=== PATIENT | male | born 1965 | race Caucasian/White ===

== ENCOUNTER → 2018-09-07 16:00 | Oncology outpatient (ONC) | payer OTHER, SELFPAY ==
[2018-08-31 15:31] VITALS: BP 139/75; PULSE 70; RESP 16; TEMP 37.2; O2SAT 96
--- NOTE | 2018-08-31 15:54 | ONC.CONS ---
History of Present Illness - Data of Consult Consult date: 08/31/18 Primary Care Provider: Joseph Houser MD - Consult Narrative Narrative: Colin Fuentes is a 53 year old male who is referred for further evaluation of a recently discovered thrombocytopenia. The patient reports that he has been undergoing evaluation for bariatric surgery. As part of that, he had routine blood work done on June 30. He was found to have a platelet count of a [id number]. He had a mild anemia with a hemoglobin of 12.5 hematocrit 35.5 and an MCV of 91. His white count was 6000. The he does not have any other older CBCs available in our system for review. He tells me that he has had lifelong mild anemia. He has not been aware of any prior history of thrombocytopenia. He denies any unusual bleeding or bruising. There has been no epistaxis or gingival bleeding. He has not noted any blood in the stool or in the urine. He did have a recent colonoscopy. He is unaware of any prior history of cytopenias. He has never required a transfusion. He has never been a blood donor. There is no family history of blood dyscrasias. He has not had any recent infections. He has not noted any adenopathy. His weight has been stable. His appetite has been good. He is otherwise without complaint. Past medical history is notable for hypertension and gout. He has had a prior pacemaker placed. He has had some arthritis in his knee. He did have a recent colonoscopy with only a couple of polyps found. His medications include lisinopril and hydrochlorothiazide. He takes allopurinol. He uses indomethacin as needed. He does take some meloxicam aspirin 81 mg and vitamin-D. He reports an allergy to penicillin. Family history: He has a half brother who is being treated for cancer other does not know what type. There is no family history of blood dyscrasias or cytopenias. There is no other family history of malignancy. Social history: He is . He and his on an insurance agency. He quit smoking about 6 months ago and switched to weight-bearing. He has just recently stopped nicotine. He does have occasional alcohol use. CC: Ray Motley MD Home Medications and Allergies Home Medications Medication Instructions Recorded Confirmed Type albuterol sulfate 2 puff INHALATION Q6H PRN 08/31/18 08/31/18 History allopurinol 1 tab PO DAILY 08/31/18 08/31/18 History aspirin 81 mg PO DAILY 08/31/18 08/31/18 History cholecalciferol (vitamin D3) 5,000 unit PO DAILY 08/31/18 08/31/18 History [Vitamin D3] hydrochlorothiazide 1 tab PO DAILY 08/31/18 08/31/18 History lisinopril 1 tab PO DAILY 08/31/18 08/31/18 History meloxicam 7.5 mg PO DAILY 08/31/18 08/31/18 History omeprazole 10 mg PO PRN PRN 08/31/18 08/31/18 History Allergies Allergy/AdvReac Type Severity Reaction Status Date / Time Penicillins Allergy Mild Hives Verified 08/31/18 15:33 Medical History - Social History Smoking Status: Former smoker Alcohol Intake Frequency: 0-2 drinks per day Current Occupational Status: employed Review of Systems Constitutional: fair state of general health Ears, nose, mouth, throat: nasal congestion Gastrointestinal: no change in appetite, no abdominal pain Exam - Constitutional positive no acute distress, positive morbidly obese - Routine HEENT Exam Head: Present: normocephalic, atraumatic Eye: Present: EOMI, PERRL. Absent: conjunctival icterus, scleral injection ENT: Present: mucous membranes moist, oropharynx clear, dentition normal - Routine Neck Exam Present: supple. Absent: lymphadenopathy, thyromegaly - Routine Chest/Breast/Axilla Exam Chest wall exam standard: Absent: tenderness - Routine Respiratory Exam Present: Clear to auscultation bilaterally. Absent: rales, wheezes - Routine Cardiovascular Exam Present: RRR, S1, S2. Absent: murmur - Routine Abdominal Exam Present: soft. Absent: tenderness, organomegaly, mass - Routine Extremities Exam Present: edema. Absent: cyanosis, clubbing - Routine Back/Spine Exam Back/Spine: Absent: paraspinal tenderness, vertebral tenderness - Routine Skin Exam Present: intact. Absent: petechiae, rash - Routine Neurological Exam Present: alert, oriented X3, CN II-XII intact. Absent: sensory deficit - Routine Psychiatric Exam Present: normal affect, normal thought process Assessment and Plan (1) Thrombocytopenia Current visit: Yes Status: Acute The patient is a 53-year-old man with a mild thrombocytopenia of unclear duration. The patient reports that he thinks that he has had normal once in the past. It is possible that this may represent pseudo thrombocytopenia. It is possible that it might have been transient thrombocytopenia could be resolved. Will plan on repeating a CBC today. If it is persistent, then I think it might be reasonable to check for viral infections such as hepatitis or HIV. B12 or folate deficiency could potentially present like this as could hypothyroidism. Autoimmune conditions such as lupus anticoagulant could be considered. Splenomegaly could also present with thrombocytopenia. One could consider liver disease although his liver functions have looked pretty good. Of his medications, hydrochlorothiazide is occasionally associated with thrombocytopenia. Indocin also is rarely associated with thrombocytopenia though he has not been taking that recently. Intrinsic marrow problem such as myelodysplasia could not be ruled out. We will plan on checking a CBC today. If his counts have improved, I think he could safely proceed to surgery. If his platelet count is lower or his anemia is worse, then I think further laboratory evaluation would be indicated. We will call him when the results of his CBC are available and arrange for further follow-up after that if needed.
[2018-08-31 16:03] LABS: Add Manual Diff / Slide Review NO; Basophils Percent Auto 0.9 % (0-2); Eosinophils Percent Auto 2.2 % (2-4); Hemoglobin 12.2 g/dL (13.5-17.5); Lymphocytes Percent Auto 17.4 % (25-40); Mean Corpuscular HGB Conc 33.8 % (30-36); Mean Corpuscular Hemoglobin 31.5 PG (26-34); Mean Corpuscular Volume 93.2 fL (80-100); Monocytes Percent Auto 5.4 % (3-14); Neutrophils Absolute Auto 6200 /uL (3000-5900); Neutrophils Percent Auto 74.1 % (50-75); Platelet Count 139 X10^3/uL (150-400); Red Blood Cell Count 3.86 X10^6/uL (4.5-5.9); Red Cell Distribution Width 13.8 % (11.6-14.8); White Blood Cell Count 8.3 X10^3/uL (4.5-11.0)
[2018-09-02 15:58] LABS: Thyroid Stimulating Hormone 3.96 uIU/mL (0.47-4.68)
[2018-09-02 16:19] LABS: HIV 1 and 2 Antibody NEGATIVE (NEGATIVE); Hep C Virus Ab w/Reflex Quant NEGATIVE s/c (NEGATIVE)
[2018-09-02 16:32] LABS: Folate 10.9 ng/mL (2.76-20.0); Vitamin B12 615 pg/mL (239-931)
[2018-09-06 22:33] LABS: ANA Screen NEGATIVE (Negative); DNA Antibody Crithidia IFA NEGATIVE (Negative); Rheumatoid Factor <14 IU/mL; Sjogren Antiboday SS-A <1.0 NEG AI (<1.0 NEGATIVE); Sjogren Antiboday SS-B <1.0 NEG AI (<1.0 NEGATIVE); Sm Antibody <1.0 NEG AI (<1.0 NEGATIVE); Sm/RNP Antibody <1.0 NEG AI (<1.0 NEGATIVE)
[2018-09-07 16:07] VITALS: BP 145/87; PULSE 82; RESP 18; TEMP 36.8; O2SAT 97
--- NOTE | 2018-09-07 16:17 | ONC.PN ---
PN -Subjective Interval history: Diagnosis: Thrombocytopenia Interval history: Patient returns today for follow-up. Since his last visit here, he has been feeling quite well. He has been sticking to his diet and has lost about 10 lb. He has not had any unusual bleeding or bruising. He otherwise feels quite well. He denies any other changes in his health. No new medications. Home Medications and Allergies Home Medications Medication Instructions Recorded Confirmed Type albuterol sulfate 2 puff INHALATION Q6H PRN 08/31/18 08/31/18 History allopurinol 1 tab PO DAILY 08/31/18 08/31/18 History aspirin 81 mg PO DAILY 08/31/18 08/31/18 History cholecalciferol (vitamin D3) 5,000 unit PO DAILY 08/31/18 08/31/18 History [Vitamin D3] hydrochlorothiazide 1 tab PO DAILY 08/31/18 08/31/18 History lisinopril 1 tab PO DAILY 08/31/18 08/31/18 History meloxicam 7.5 mg PO DAILY 08/31/18 08/31/18 History omeprazole 10 mg PO PRN PRN 08/31/18 08/31/18 History Allergies Allergy/AdvReac Type Severity Reaction Status Date / Time Penicillins Allergy Mild Hives Verified 08/31/18 15:33 Exam - Constitutional positive no acute distress, positive morbidly obese Results - Labs Laboratory Last Values WBC 8.3 X10^3/uL (4.5-11.0) 08/31/18 15:48 RBC 3.86 X10^6/uL (4.5-5.9) L 08/31/18 15:48 Hgb 12.2 g/dL (13.5-17.5) L 08/31/18 15:48 Hct 36.0 % (41-53) L 08/31/18 15:48 MCV 93.2 fL (80-100) 08/31/18 15:48 MCH 31.5 PG (26-34) 08/31/18 15:48 MCHC 33.8 % (30-36) 08/31/18 15:48 RDW 13.8 % (11.6-14.8) 08/31/18 15:48 Plt Count 139 X10^3/uL (150-400) L 08/31/18 15:48 Neut % (Auto) 74.1 % (50-75) 08/31/18 15:48 Lymph % (Auto) 17.4 % (25-40) L 08/31/18 15:48 [place] % (Auto) 5.4 % (3-14) 08/31/18 15:48 Eos % (Auto) 2.2 % (2-4) 08/31/18 15:48 Baso % (Auto) 0.9 % (0-2) 08/31/18 15:48 Neut # (Auto) 6200 /uL (6112-1966) H 08/31/18 15:48 Vitamin B12 615 pg/mL (239-931) 09/02/18 14:29 Folate 10.9 ng/mL (2.76-20.0) 09/02/18 14:29 TSH 3.96 uIU/mL (0.47-4.68) 09/02/18 14:29 Rheumatoid Factor <14 IU/mL 09/02/18 14:29 JOSE Screen Negative (Negative) 09/02/18 14:29 SS-A Antibody <1.0 neg AI (<1.0 NEGATIVE) 09/02/18 14:29 SS-B Antibody <1.0 neg AI (<1.0 NEGATIVE) 09/02/18 14:29 SM/[employer] Antibody <1.0 neg AI (<1.0 NEGATIVE) 09/02/18 14:29 Scl-70 Scleroderma Ab <1.0 neg AI (<1.0 NEGATIVE) 09/02/18 14:29 Anti-ds DNA (Crithidia) Negative (Negative) 09/02/18 14:29 Anti-Smooth Muscle Ab <1.0 neg AI (<1.0 NEGATIVE) 09/02/18 14:29 Hepatitis C Antibody Negative s/c (NEGATIVE) 09/02/18 14:29 HIV 1&2 Antibody Negative (NEGATIVE) 09/02/18 14:29 Assessment and Plan (1) Thrombocytopenia Current visit: Yes Status: Acute The patient is a 53-year-old man with a mild thrombocytopenia. His evaluation has included B12 folate and TSH were which were all normal. He did not have any evidence of hepatitis C or HIV. There is no evidence of any lupus anticoagulant or anticardiolipin antibodies. On recheck his platelet count had improved although not quite normalized. At this level, I think it is safe for him to undergo any needed surgery. I do not think any further evaluation is necessary. I have not scheduled a follow-up appointment for him but would be happy to see him again in the future should new questions arise.
--- NOTE | 2018-09-07 16:23 | P.PNONC_ITS ---
PN -Subjective Interval history: Diagnosis: Thrombocytopenia Interval history: Patient returns today for follow-up. Since his last visit here, he has been feeling quite well. He has been sticking to his diet and has lost about 10 lb. He has not had any unusual bleeding or bruising. He otherwise feels quite well. He denies any other changes in his health. No new medications. Home Medications and Allergies Home Medications Medication Instructions Recorded Confirmed Type albuterol sulfate 2 puff INHALATION Q6H PRN 08/31/18 08/31/18 History allopurinol 1 tab PO DAILY 08/31/18 08/31/18 History aspirin 81 mg PO DAILY 08/31/18 08/31/18 History cholecalciferol (vitamin D3) 5,000 unit PO DAILY 08/31/18 08/31/18 History [Vitamin D3] hydrochlorothiazide 1 tab PO DAILY 08/31/18 08/31/18 History lisinopril 1 tab PO DAILY 08/31/18 08/31/18 History meloxicam 7.5 mg PO DAILY 08/31/18 08/31/18 History omeprazole 10 mg PO PRN PRN 08/31/18 08/31/18 History Allergies Allergy/AdvReac Type Severity Reaction Status Date / Time Penicillins Allergy Mild Hives Verified 08/31/18 15:33 Exam - Constitutional positive no acute distress, positive morbidly obese Results - Labs Laboratory Last Values WBC 8.3 X10^3/uL (4.5-11.0) 08/31/18 15:48 RBC 3.86 X10^6/uL (4.5-5.9) L 08/31/18 15:48 Hgb 12.2 g/dL (13.5-17.5) L 08/31/18 15:48 Hct 36.0 % (41-53) L 08/31/18 15:48 MCV 93.2 fL (80-100) 08/31/18 15:48 MCH 31.5 PG (26-34) 08/31/18 15:48 MCHC 33.8 % (30-36) 08/31/18 15:48 RDW 13.8 % (11.6-14.8) 08/31/18 15:48 Plt Count 139 X10^3/uL (150-400) L 08/31/18 15:48 Neut % (Auto) 74.1 % (50-75) 08/31/18 15:48 Lymph % (Auto) 17.4 % (25-40) L 08/31/18 15:48 [place] % (Auto) 5.4 % (3-14) 08/31/18 15:48 Eos % (Auto) 2.2 % (2-4) 08/31/18 15:48 Baso % (Auto) 0.9 % (0-2) 08/31/18 15:48 Neut # (Auto) 6200 /uL (6498-9154) H 08/31/18 15:48 Vitamin B12 615 pg/mL (239-931) 09/02/18 14:29 Folate 10.9 ng/mL (2.76-20.0) 09/02/18 14:29 TSH 3.96 uIU/mL (0.47-4.68) 09/02/18 14:29 Rheumatoid Factor <14 IU/mL 09/02/18 14:29 JOSE Screen Negative (Negative) 09/02/18 14:29 SS-A Antibody <1.0 neg AI (<1.0 NEGATIVE) 09/02/18 14:29 SS-B Antibody <1.0 neg AI (<1.0 NEGATIVE) 09/02/18 14:29 SM/[employer] Antibody <1.0 neg AI (<1.0 NEGATIVE) 09/02/18 14:29 Scl-70 Scleroderma Ab <1.0 neg AI (<1.0 NEGATIVE) 09/02/18 14:29 Anti-ds DNA (Crithidia) Negative (Negative) 09/02/18 14:29 Anti-Smooth Muscle Ab <1.0 neg AI (<1.0 NEGATIVE) 09/02/18 14:29 Hepatitis C Antibody Negative s/c (NEGATIVE) 09/02/18 14:29 HIV 1&2 Antibody Negative (NEGATIVE) 09/02/18 14:29 Assessment and Plan (1) Thrombocytopenia Current visit: Yes Status: Acute The patient is a 53-year-old man with a mild thrombocytopenia. His evaluation has included B12 folate and TSH were which were all normal. He did not have any evidence of hepatitis C or HIV. There is no evidence of any lupus anticoagulant or anticardiolipin antibodies. On recheck his platelet count had improved although not quite normalized. At this level, I think it is safe for him to undergo any needed surgery. I do not think any further evaluation is necessary. I have not scheduled a follow-up appointment for him but would be happy to see him again in the future should new questions arise.
== END ==
PROVIDERS: Family Provider Family Medicine; PCP Family Medicine
DX: D69.6 Thrombocytopenia, unspecified (principal)
CPT/HCPCS: 36415; 82607; 82746; 84443; 85025; 86038; 86430; 86703; 86803; 99204; 99213; 99214